=== PATIENT | male | born 1950 | race Caucasian/White ===

== ENCOUNTER 2024-09-16 09:37 | Outpatient (OUT) | payer MEDICARE, SELFPAY ==
[2024-09-16 11:54] LABS: Prostate Specific Antigen Scrn 2.01 ng/mL (<=4.00)
== END 2024-09-16 09:38 | disposition home or self-care (01) ==
PROVIDERS: PCP Internal Medicine; Visit Provider Internal Medicine
DX: Z12.5 Encounter for screening for malignant neoplasm of prostate (principal)
CPT/HCPCS: 36415; G0103